=== PATIENT | male | born 1945 | race Caucasian/White ===

== ENCOUNTER 2020-05-18 14:06 | Emergency (ER) | payer MEDICARE, OTHER, SELFPAY ==
[2020-05-18 14:18] VITALS: BP 166/64; PULSE 59; RESP 16; TEMP 36.8; O2SAT 99
--- NOTE | 2020-05-18 14:42 | ED.EYEPROB ---
HPI - Eye Problem General Chief complaint: Eye Problems Stated complaint: eyes itching/burning Time Seen by Provider: 05/18/20 14:42 Source: patient Mode of arrival: ambulatory Limitations: no limitations History of Present Illness HPI Narrative: Scar Cid is a 74 yo male with a PMH dialysis, CKD, HTN, CHF, diabetes, chronic anticoagulation, hypothyroid, PTSD, high cholesterol, HSV, was here for bilateral eye itching that started on right 3 to 4 days ago with left starting today. Patient has a long medical history most acute being his last June where he had viral pneumonia and ended up developing kidney failure resulting in starting dialysis, his ejection fraction for his heart became poor, down to 15% with the use of Entresto for congestive heart failure and adjustment about his medication his current ejection fraction is 39%. Because of the low ejection fraction an ICD was implanted in his chest on the upper left; he is on chronic anticoagulation due to the stents that he received in 2005 and again in 2019. Related Data Home Medications Medication Instructions Recorded Confirmed allopurinol 100 mg PO DAILY 05/18/20 05/18/20 amlodipine 5 mg PO DAILY 05/18/20 05/18/20 carvedilol 12.5 mg PO BID 05/18/20 05/18/20 clopidogrel [Plavix] 75 mg PO DAILY 05/18/20 05/18/20 folic acid 1 mg PO DAILY 05/18/20 05/18/20 insulin aspart U-100 [Novolog 10 unit SUBCUT TID 05/18/20 05/18/20 U-100 Insulin aspart] insulin glargine [Lantus U-100 14 unit SUBCUT DAILY 05/18/20 05/18/20 Insulin] levothyroxine 100 mcg PO DAILY 05/18/20 05/18/20 rosuvastatin 20 mg PO DAILY 05/18/20 05/18/20 valacyclovir 1,000 mg PO TID 05/18/20 05/18/20 Allergies Allergy/AdvReac Type Severity Reaction Status Date / Time fentanyl Allergy Nausea and Verified 05/18/20 14:32 Vomiting Review of Systems Review of Systems: Narrative: CONSTITUTIONAL: Denies fever, chills, sweats. EYES: Denies visual changes, has bilateral redness, discharge on right. Complains of itching bilaterally ENT: Denies rhinorrhea, congestion, sore throat, otalgia. CARDIOVASCULAR: Denies chest pain, palpitations, edema. RESPIRATORY: Denies dyspnea, wheezing, cough GASTROINTESTINAL: Denies abdominal pain, nausea, vomiting, diarrhea. GENITOURINARY: Denies dysuria, hematuria, abnormal discharge SKIN: Denies rash or itching. NEUROLOGIC: Denies numbness, or focal weakness. PSYCHIATRIC: Denies anxiety or depression. [facility] Past Medical History Medical History Chronic anticoagulation CKD (chronic kidney disease) Diabetes Dialysis (juvenile) of retina (with detachment) High cholesterol HTN (hypertension) Hypothyroid Social History Social History (Updated 05/18/20 @ 15:27 by Katharina Umana CNP) Smoking status: Former smoker Alcohol intake: former Comments At time of signature, I agree with nursing past medical, surgical, social and family history. There is no relevant family history pertinent to the presenting complaint. Exam Narrative: Exam Narrative: GENERAL: This is a well-nourished, well-developed patient, in mild distress. HEAD: normocephalic, atraumatic. EYES: . Sclera injected bilaterally with matting on right eyelid. vision is grossly intact. EARS: External ears normal, Hearing grossly intact. NOSE: External nose normal without nasal discharge, nares without redness, no rhinorrhea. THROAT: Mucous membranes moist, NECK: Neck supple, CARDIOVASCULAR: Regular rate and rhythm without murmurs, gallops, or rubs. RESPIRATORY: Clear to auscultation. Breath sounds equal bilaterally. No wheezes, rales, or rhonchi. GASTROINTESTINAL: Abdomen soft, non-tender, SKIN: warm, intact with no suspicious lesions or rash, good texture and turgor. Bruising on arms and back of hands NEURO: awake, alert, and oriented to person, place and time. There were no obvious focal neurologic abnormalities. Steady gait EXTREMITIE
== END 2020-05-18 15:22 | disposition home or self-care (01) ==
PROVIDERS: Emergency Provider Nurse Practitioner; PCP Internal Medicine
DX: H57.89 Other specified disorders of eye and adnexa (principal); T78.40XA Allergy, unspecified, initial encounter; K12.0 Recurrent oral aphthae; H10.31 Unspecified acute conjunctivitis, right eye; Z87.891 Personal history of nicotine dependence; I13.0 Hypertensive heart and chronic kidney disease with heart failure and stage 1 through stage 4 chronic kidney disease, or unspecified chronic kidney disease; E11.22 Type 2 diabetes mellitus with diabetic chronic kidney disease; N18.3 Chronic kidney disease, stage 3 (moderate); I50.9 Heart failure, unspecified; Z79.4 Long term (current) use of insulin; E78.00 Pure hypercholesterolemia, unspecified; E03.9 Hypothyroidism, unspecified; Z99.2 Dependence on renal dialysis; Z79.01 Long term (current) use of anticoagulants; Z95.810 Presence of automatic (implantable) cardiac defibrillator
CPT/HCPCS: 99203; G0463

== ENCOUNTER 2020-06-25 16:13 | Emergency (ER) | payer MEDICARE, OTHER, SELFPAY ==
--- NOTE | 2020-06-25 16:26 | ED.EYEPROB ---
HPI - Eye Problem General Stated complaint: eyes Time Seen by Provider: 06/25/20 16:26 Source: patient and RN notes reviewed History of Present Illness HPI Narrative: Patient is a 74-year-old male who presents the urgent care with complaints of itchy dry eyes. Patient states that 1 week ago he had steroid shots in the eyes for bleeding in the eyes. Patient states he does not have a follow-up without specific eye doctor but did make an appointment at [facility] on Tuesday. Patient states that irritation and matting started yesterday and he has been using dry eyedrops as well as steroid drops. 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 Patient states he stopped them yesterday when the irritation started. Denies of any changes in vision. Denies of any known trauma or injury to the eyes. No other acute complaints. No acute distress noted. Patient aware of the plan of care. Some parts of this dictation were generated by voice recognition software and may contain typographical and/or grammatical inaccuracies. Related Data Home Medications Medication Instructions Recorded Confirmed allopurinol 100 mg PO DAILY 05/18/20 06/25/20 carvedilol 12.5 mg PO BID 05/18/20 06/25/20 clopidogrel [Plavix] 75 mg PO DAILY 05/18/20 06/25/20 folic acid 1 mg PO DAILY 05/18/20 06/25/20 insulin aspart U-100 [Novolog 10 unit SUBCUT TID 05/18/20 06/25/20 U-100 Insulin aspart] insulin glargine [Lantus U-100 14 unit SUBCUT DAILY 05/18/20 06/25/20 Insulin] levothyroxine 100 mcg PO DAILY 05/18/20 06/25/20 rosuvastatin 20 mg PO DAILY 05/18/20 06/25/20 valacyclovir 1,000 mg PO TID 05/18/20 06/25/20 amlodipine 2.5 mg PO DAILY 06/25/20 06/25/20 ezetimibe 10 mg PO DAILY 06/25/20 06/25/20 spironolactone 25 mg PO DAILY 06/25/20 06/25/20 Allergies Allergy/AdvReac Type Severity Reaction Status Date / Time fentanyl Allergy Nausea and Verified 06/25/20 16:37 Vomiting Review of Systems Review of Systems: Narrative: CONSTITUTIONAL: Denies fever, chills, or sweats. EYES: Reports of itchiness, scratchiness and matting to bilateral eyes ENT: Denies rhinorrhea, congestion, sore throat, or otalgia. CARDIOVASCULAR: Denies chest pain, palpitations, or edema. RESPIRATORY: Denies cough or dyspnea. GASTROINTESTINAL: Denies abdominal pain, nausea, vomiting, or diarrhea. GENITOURINARY: Denies dysuria or hematuria. SKIN: Denies rash or itching. MUSCULOSKELETAL: Denies back pain, joint pain, or myalgia. NEUROLOGIC: Denies headache, numbness, or weakness. All other systems reviewed are negative, except as documented in HPI. [facility] Social History Social History (Updated 05/18/20 @ 15:27 by Katharina Umana CNP) Smoking status: Former smoker Alcohol intake: former Comments At the time of my signature, I reviewed and agree with the nursing past medical, surgical, social, and family history. There is no relevant family history pertinent to the patient complaint. Exam Narrative: Exam Narrative: GENERAL: This is a well-nourished, well-developed patient, in no apparent distress. HEAD: normocephalic, atraumatic. EYES: PERRL. Sclera clear/white. Vision is grossly intact. No obvious injection noted to bilateral conjunctiva. Notable dry conjunctiva-without any matting. No obvious injury or foreign body EARS: External ears normal NOSE: External nose normal with no obvious nasal discharge, nares without redness, no rhinorrhea. THROAT: Mucous membranes moist NECK: Neck supple SKIN: warm, intact with no suspicious lesions or rash, good texture and turgor. NEURO: awake, alert, and oriented to person, place and time. There were no obvious focal neurologic abnormalities. EXTREMITIES: No clubbing, cyanosis, or edema. Course Vital Signs Vital signs: Vital Signs Temperature 98.5 F 06/25/20 16:30 Pulse Rate 60 06/25/20 16:30 Respiratory Rate 20 06/25/20 16:30 Blood Pressure 153/53 H 06/25/20
[2020-06-25 16:30] VITALS: BP 153/53; PULSE 60; RESP 20; TEMP 36.9; O2SAT 98
== END 2020-06-25 17:05 | disposition home or self-care (01) ==
PROVIDERS: Emergency Provider Nurse Practitioner Family; PCP Internal Medicine
DX: H57.89 Other specified disorders of eye and adnexa (principal); Z87.891 Personal history of nicotine dependence; E78.00 Pure hypercholesterolemia, unspecified; I13.0 Hypertensive heart and chronic kidney disease with heart failure and stage 1 through stage 4 chronic kidney disease, or unspecified chronic kidney disease; E11.22 Type 2 diabetes mellitus with diabetic chronic kidney disease; N18.9 Chronic kidney disease, unspecified; I50.9 Heart failure, unspecified; E03.9 Hypothyroidism, unspecified; Z95.810 Presence of automatic (implantable) cardiac defibrillator
CPT/HCPCS: 99213; G0463

== ENCOUNTER 2022-06-11 13:35 | Emergency (ER) | payer MEDICARE, OTHER, SELFPAY ==
[2022-06-11 13:42] VITALS: BP 130/48; PULSE 69; RESP 18; TEMP 36.6; O2SAT 97
[2022-06-11 14:01] VITALS: BP 130/52; PULSE 69
--- NOTE | 2022-06-11 14:04 | ED.BACK ---
HPI - Back Pain/Injury General Chief Complaint: Back Pain/Injury Stated Complaint: Back Pain Time Seen by Provider: 06/11/22 13:50 Source: patient Mode of arrival: ambulatory Limitations: no limitations History of Present Illness HPI Narrative: Mr. Cid is a 76-year-old male patient presenting to the clinic today with complaints of severe low back pain x2 days. He became very diaphoretic and pale and felt as though he was going to passed out when he got into our triage room. He does have a history of renal failure and is on dialysis. He just was dialyzed yesterday. States he fell in the bathtub approximately 1 month ago however he does not feel like this is causing his back pain today. Recommend transfer to ED for further follow-up/evaluation since his pain is so intense and patient agreed. Related Data Home Medications Medication Instructions Recorded Confirmed allopurinol 100 mg tablet 100 mg PO DAILY 05/18/20 06/11/22 carvedilol 12.5 mg tablet 12.5 mg PO BID 05/18/20 06/11/22 clopidogrel 75 mg tablet (Plavix) 75 mg PO DAILY 05/18/20 06/11/22 folic acid 1 mg tablet 1 mg PO DAILY 05/18/20 06/11/22 insulin aspart U-100 100 unit/mL 10 unit subcut TID 05/18/20 06/11/22 subcutaneous solution (Novolog U-100 Insulin aspart) insulin glargine 100 unit/mL 14 unit subcut DAILY 05/18/20 06/11/22 subcutaneous solution (Lantus U-100 Insulin) levothyroxine 100 mcg capsule 100 mcg PO DAILY 05/18/20 06/11/22 valacyclovir 500 mg tablet 1,000 mg PO TID 05/18/20 06/11/22 amlodipine 2.5 mg tablet 2.5 mg PO DAILY 06/25/20 06/11/22 carboxymethylcellulose sodium 0.5 See Rx Instructions .Route .COMPLEX 06/25/20 06/11/22 % eye drops (Refresh Tears) ezetimibe 10 mg tablet 10 mg PO DAILY 06/25/20 06/11/22 famotidine 40 mg tablet 40 mg PO DAILY 06/25/20 06/11/22 fenofibrate nanocrystallized 48 mg 48 mg PO DAILY 06/25/20 06/11/22 tablet (Tricor) methotrexate sodium 2.5 mg tablet 2.5 mg PO WEEKLY 06/25/20 06/11/22 prednisone 2.5 mg tablet 2.5 mg PO BID PRN pain 06/25/20 06/11/22 rosuvastatin 10 mg tablet 10 mg PO DAILY 06/25/20 06/11/22 spironolactone 25 mg tablet 25 mg PO DAILY 06/25/20 06/11/22 Allergies Allergy/AdvReac Type Severity Reaction Status Date / Time fentanyl Allergy Nausea and Verified 06/11/22 13:52 Vomiting [facility] Past Medical History Medical History (Updated 06/11/22 @ 14:13 by Ochoa Dunlap, DIRECTOR BUSINESS DEVELOPMENT) Chronic anticoagulation CKD (chronic kidney disease) Diabetes Dialysis (juvenile) of retina (with detachment) High cholesterol HTN (hypertension) Hypothyroid Social History Social History Smoking status: Former smoker Alcohol intake: former Comments At the time of my signature, I reviewed and agree with the nursing past medical, surgical, social, and family history. There is no relevant family history pertinent to the patient complaint. Exam Narrative: General: Well-developed, obese, in no apparent distress Head: Normocephalic, atraumatic. Cardio: Regular rate and rhythm, s1 and s2 normal, no murmur appreciated. Resp: Clear to auscultation bilaterally, no rhonchi, rales, wheezing or rubs. Musculoskeletal: No deformity, tender to palpation over the lumbar spine and paraspinous musculature, very limited range of motion due to pain, muscle strength strong and equal, peripheral pulse strong, no edema, no cyanosis, cautious and slow moving gait due to pain Skin: Is pale and diaphoretic in triage due to pain Course Course Emergency Course: Portions of this record may have been created with voice recognition software. Level of Care: Express Care Visit Vital Signs Vital signs: Vital Signs Temperature 36.6 C 06/11/22 13:42 Pulse Rate 69 06/11/22 13:42 Respiratory Rate 18 06/11/22 13:42 Blood Pressure 130/48 L 06/11/22 13:42 Pulse Oximetry 97 06/11/22 13:42 Oxygen Delivery Room Air 06/11/22 13:42 Tem
== END 2022-06-11 14:02 | disposition short-term general hospital (02) ==
LOC: EXPBETH 13:38
PROVIDERS: Emergency Provider Nurse Practitioner Family; PCP Internal Medicine
DX: M54.50 Low back pain, unspecified (principal); Z87.891 Personal history of nicotine dependence; I12.0 Hypertensive chronic kidney disease with stage 5 chronic kidney disease or end stage renal disease; E11.22 Type 2 diabetes mellitus with diabetic chronic kidney disease; N18.6 End stage renal disease; Z99.2 Dependence on renal dialysis; Z79.4 Long term (current) use of insulin; E78.00 Pure hypercholesterolemia, unspecified; E03.9 Hypothyroidism, unspecified; Z79.01 Long term (current) use of anticoagulants
CPT/HCPCS: 99212; G0463

== ENCOUNTER → 2023-02-10 07:47 | Outpatient (CLI) | payer MEDICARE, OTHER, SELFPAY ==
--- NOTE | ~2023-02-10 | CT_ITS ---
Noncontrast CT scan of the lumbar spine CLINICAL HISTORY: Compression fracture TECHNIQUE: Axial noncontrast imaging of the lumbar spine was performed. Sagittal and coronal reformat rhonda images were constructed. Dose reduction technique was used on this scan by utilizing automated ex posure control and iterative reconstruction technique. The dose-length product (DLP) was 1001.38 mGy- cm. FINDINGS: There are chronic compression deformities of T12 and L1 with vertebroplasty cement present. There is moderate compression fracture deformity predominantly involving the central portion of the L3 vertebral body. No subluxation evident. At L1-L2, there is no disc bulge or herniation. There is minimal facet arthropathy. No spinal canal s tenosis. There is mild to moderate bilateral neural foraminal narrowing. At L2-L3, there is minimal disc bulge and mild facet arthropathy. No spinal canal stenosis. There is mild left neural foraminal narrowing. At L3-L4, there is disc bulge and moderate facet arthropathy. No central canal stenosis. There is mil d bilateral neural foraminal narrowing. At L4-L5, there is disc bulge and advanced facet arthropathy, resulting in moderate to severe thecal sac compression/stenosis. There is moderate bilateral neural foraminal narrowing, right worse than le ft. At L5-S1, there is disc bulge and advanced facet arthropathy. No berenice central canal stenosis. There is moderate to severe bilateral neural foraminal narrowing. Paravertebral soft tissues are unremarkable. Impression: Moderate compression fracture involving the central portion of the L3 vertebral body. Chronic compression fractures of T12 and L1, with vertebroplasty cement. Advanced degenerative spondylosis at L4-L5. Mild to moderate degenerative spondylosis at the remainin g lumbar spine. Reviewed, dictated and finalized at [facility]. Impression: Moderate compression fracture involving the central portion of the L3 vertebral body. Chronic compression fractures of T12 and L1, with vertebroplasty cement. Advanced degenerative spondylosis at L4-L5. Mild to moderate degenerative spond ylosis at the remaining lumbar spine.
== END ==
PROVIDERS: PCP Internal Medicine; Visit Provider Anesthesiology Pain Medicine
DX: M48.56XA Collapsed vertebra, not elsewhere classified, lumbar region, initial encounter for fracture (principal); M43.06 Spondylolysis, lumbar region
CPT/HCPCS: 72131

== ENCOUNTER → 2023-04-20 11:09 | Outpatient (CLI) | payer MEDICARE, OTHER, SELFPAY ==
--- NOTE | ~2023-04-20 | CT_ITS ---
EXAMINATION: CT lumbar spine wo con DATE: 04/20/2023 11:35 INDICATION: Lumbago. TECHNIQUE: Computed tomography (CT) of the lumbar spine was performed without intravenous contrast. A utomated exposure control and iterative reconstruction technique were employed. The dose-length produ ct was 1052.00 mGy-cm. COMPARISON: CT lumbar spine 02/10/2023 FINDINGS: There is an old healed fracture left 12th rib. There is 7 degrees levocurvature of thoracol umbar spine. Partially visualized is a subacute compression fracture of T11. There are chronic burst fractures of T12 and L1 with changes of vertebroplasty. There is a burst fracture of L3 with 2/5 loss of height and retropulsion of bone 1 mm into central spinal canal. There is a burst fracture of L4 w ith less than 1/5 loss of height and retropulsion of bone 2 mm into central spinal canal. Interverteb ral disc heights are normal. The following disc levels are specifically discussed: L1-L2: The disc does not extend beyond the endplate margin. There is severe right and moderate left f acet joint osteoarthritis. There is no neural foraminal stenosis. There is no central canal stenosis. L2-L3: The disc is bulging. There is moderate bilateral facet joint osteoarthritis. There is mild vanessa ateral neural foraminal stenosis. There is mild central canal stenosis. L3-L4: The disc is bulging. There is severe bilateral facet joint osteoarthritis. There is mild bilat eral neural foraminal stenosis. There is mild central canal stenosis. L4-L5: The disc is bulging. There is severe bilateral facet joint osteoarthritis. There is moderate r ight and mild left neural foraminal stenosis. There is mild central canal stenosis. L5-S1: The disc is bulging. There is severe bilateral facet joint osteoarthritis. There is mild bilat eral neural foraminal stenosis. There is mild central canal stenosis. IMPRESSION: 1. Acute L4 burst fracture. 2. Subacute L3 burst fracture, stable from 02/10/2023. Partially visualized T11 compression fracture, likely stable. 3. Mild lumbar spondylosis. Reviewed, dictated and finalized at location [facility].
== END ==
PROVIDERS: PCP Internal Medicine; Visit Provider Nurse Practitioner Family
DX: S32.041A Stable burst fracture of fourth lumbar vertebra, initial encounter for closed fracture (principal); S32.031A Stable burst fracture of third lumbar vertebra, initial encounter for closed fracture; M47.816 Spondylosis without myelopathy or radiculopathy, lumbar region; S22.080A Wedge compression fracture of T11-T12 vertebra, initial encounter for closed fracture; X58.XXXA Exposure to other specified factors, initial encounter
CPT/HCPCS: 72131

== ENCOUNTER 2023-04-29 16:12 | Emergency (ER) | payer MEDICARE, OTHER, SELFPAY ==
--- NOTE | ~2023-04-29 | XR_ITS ---
EXAMINATION: XR chest 2V DATE: 04/29/2023 17:03 INDICATION: Productive cough. TECHNIQUE: Frontal and lateral views of the chest were obtained on 3 radiographs. COMPARISON: CT 04/20/2023 FINDINGS: There is mild atelectasis in left lower lung zone. No pleural effusion or pneumothorax. The heart size is normal. There is a left chest pacer with leads in right atrium, right ventricle, and c oronary sinus. There are old healed right rib fractures. There are changes of vertebroplasty at 2 lev els. Again seen is height loss of multiple vertebral bodies. IMPRESSION: 1. Mild atelectasis in left lower lung zone. Reviewed, dictated and finalized at location [facility].
[2023-04-29 16:22] VITALS: BP 129/85; PULSE 74; RESP 18; TEMP 36.3; O2SAT 98
--- NOTE | 2023-04-29 16:30 | ED.URI ---
HPI - URI/Sore Throat General Chief Complaint: Upper Respiratory Infection Stated Complaint: Coughing and Vomitting Source: patient, family and RN notes reviewed History of Present Illness HPI Narrative: 77 yo M presents to urgent care with at side. states pt has been coughing x 3 weeks. Pt states he will cough so hard, he will vomit. Pt also states he will vomit sometimes without coughing, about 1x/day, but not today. Reports diarrhea last weekend but nothing since. States his cough is worse when he lies down. Denies any chest pain, SOB, abdominal pain. Pt has been taking Tessalon Perles at home. Pt also has zofran and meclizine at home to help with vomiting but they do not work. Related Data Home Medications Medication Instructions Recorded Confirmed allopurinol 100 mg tablet 100 mg PO DAILY 05/18/20 04/29/23 carvedilol 12.5 mg tablet 12.5 mg PO BID 05/18/20 04/29/23 clopidogrel 75 mg tablet (Plavix) 75 mg PO DAILY 05/18/20 04/29/23 folic acid 1 mg tablet 1 mg PO DAILY 05/18/20 04/29/23 insulin aspart U-100 100 unit/mL 10 unit subcut TID 05/18/20 04/29/23 subcutaneous solution (Novolog U-100 Insulin aspart) insulin glargine 100 unit/mL 14 unit subcut DAILY 05/18/20 04/29/23 subcutaneous solution (Lantus U-100 Insulin) levothyroxine 100 mcg capsule 100 mcg PO DAILY 05/18/20 04/29/23 valacyclovir 500 mg tablet 1,000 mg PO TID 05/18/20 04/29/23 amlodipine 2.5 mg tablet 2.5 mg PO DAILY 06/25/20 04/29/23 carboxymethylcellulose sodium 0.5 See Rx Instructions .Route .COMPLEX 06/25/20 04/29/23 % eye drops (Refresh Tears) ezetimibe 10 mg tablet 10 mg PO DAILY 06/25/20 04/29/23 famotidine 40 mg tablet 40 mg PO DAILY 06/25/20 04/29/23 fenofibrate nanocrystallized 48 mg 48 mg PO DAILY 06/25/20 04/29/23 tablet (Tricor) methotrexate sodium 2.5 mg tablet 2.5 mg PO WEEKLY 06/25/20 04/29/23 prednisone 2.5 mg tablet 2.5 mg PO BID PRN pain 06/25/20 04/29/23 rosuvastatin 10 mg tablet 10 mg PO DAILY 06/25/20 04/29/23 spironolactone 25 mg tablet 25 mg PO DAILY 06/25/20 04/29/23 Allergies Allergy/AdvReac Type Severity Reaction Status Date / Time fentanyl Allergy Nausea and Verified 04/29/23 16:34 Vomiting Review of Systems Review of Systems: Pertinent positives and pertinent negatives per HPI. [facility] Past Medical History Medical History (Updated 04/29/23 @ 17:42 by Summer Garcia, BOND CLERK) Chronic anticoagulation CKD (chronic kidney disease) Diabetes Dialysis (juvenile) of retina (with detachment) High cholesterol HTN (hypertension) Hypothyroid Social History Social History Smoking status: Former smoker Alcohol intake: former Comments At the time of my signature, I reviewed and agree with the nursing past medical, surgical, social, and family history. There is no relevant family history pertinent to the patient complaint. Exam Narrative: GENERAL: This is a well-nourished, well-developed patient, in no apparent distress. HEAD: normocephalic, atraumatic. EYES: Sclera clear/white. Vision is grossly intact. EARS: External ears normal, auditory canals clear and without drainage. Hearing grossly intact. NOSE: External nose normal with no obvious nasal discharge, nares without redness, no rhinorrhea. THROAT: Mucous membranes moist, posterior pharynx clear. NECK: Neck supple, non-tender without lymphadenopathy, masses or thyromegaly. CARDIOVASCULAR: Regular rate RESPIRATORY: Clear to auscultation. Breath sounds equal bilaterally. No wheezes, rales, or rhonchi. GASTROINTESTINAL: Abdomen soft, non-tender, nondistended. Bowel sounds are active. No hepato-splenomegaly, or palpable masses. No guarding. SKIN: warm, intact with no suspicious lesions or rash, good texture and turgor. NEURO: awake, alert, and oriented to person, place and time. There were no obvious focal neurologic abnormalities. Course Course Level of Care: Express Ca
== END 2023-04-29 17:52 | disposition home or self-care (01) ==
PROVIDERS: Emergency Provider Nurse Practitioner Family; PCP Internal Medicine
DX: J40 Bronchitis, not specified as acute or chronic (principal); R11.10 Vomiting, unspecified; Z87.891 Personal history of nicotine dependence; I12.0 Hypertensive chronic kidney disease with stage 5 chronic kidney disease or end stage renal disease; E11.22 Type 2 diabetes mellitus with diabetic chronic kidney disease; N18.6 End stage renal disease; Z99.2 Dependence on renal dialysis; Z79.4 Long term (current) use of insulin; Z79.01 Long term (current) use of anticoagulants; E78.00 Pure hypercholesterolemia, unspecified; E03.9 Hypothyroidism, unspecified
CPT/HCPCS: 71046; 99213; G0463

== ENCOUNTER 2023-07-09 15:52 | Emergency (ER) | payer MEDICARE, OTHER, SELFPAY ==
--- NOTE | ~2023-07-09 | XR_ITS ---
EXAM: XR hand LT min 3V DATE: 07/09/2023 16:47 HISTORY: KNI. CHRONIC SWELLING. . COMPARISON: None available. FINDINGS: Decreased mineralization. No fracture or dislocation. No lytic or blastic lesion. Moderate polyarticular osteoarthritis. No erosion or periosteal change. Diffuse vascular calcifications. IMPRESSION: No acute osseous finding in the left hand. Reviewed, dictated and finalized at location [facility].
[2023-07-09 16:02] VITALS: BP 121/58; PULSE 80; RESP 20; TEMP 36.5; O2SAT 97
--- NOTE | 2023-07-09 16:07 | ED.EXTPRO ---
HPI - Extremity Problem General Chief complaint: Extremity Problem,Nontraumatic Stated complaint: gout Time Seen by Provider: 07/09/23 16:07 Source: patient, RN notes reviewed and old records reviewed Mode of arrival: ambulatory Limitations: no limitations History of Present Illness HPI Narrative: 77 year old male accompanied by presents to express care with complaints of 2 week duration of left forearm and hand swelling. Patient is dialysis patient and has fistula to his left upper arm and patient did have dialysis today. and worked fine according to . Patient states his main complaint today is pain in his left hand and wrist area.Patient states the pain is worse when he makes a fist, reports no numbness or tingling to hand, reports no injury or fall. Patient reports that he thinks it may be gout has had gout in the past and he takes Allopurinol daily. Patient has long history of co morbidities. MD Complaint: extremity pain and extremity swelling (left forearm and hand) Onset (ago): week(s) (2 weeks stated increased swelling left distal forearm and hand, increased pain to [place] hand and wrist today. ) Location: left and upper extremity (distal forearm and left hand) Severity scale (1-10): 6 Exacerbating factors: other (movement and making a fist) Related Data Home Medications Medication Instructions Recorded Confirmed allopurinol 100 mg tablet 100 mg PO DAILY 05/18/20 04/29/23 carvedilol 12.5 mg tablet 12.5 mg PO BID 05/18/20 04/29/23 clopidogrel 75 mg tablet (Plavix) 75 mg PO DAILY 05/18/20 04/29/23 folic acid 1 mg tablet 1 mg PO DAILY 05/18/20 04/29/23 insulin aspart U-100 100 unit/mL 10 unit subcut TID 05/18/20 04/29/23 subcutaneous solution (Novolog U-100 Insulin aspart) insulin glargine 100 unit/mL 14 unit subcut DAILY 05/18/20 04/29/23 subcutaneous solution (Lantus U-100 Insulin) levothyroxine 100 mcg capsule 100 mcg PO DAILY 05/18/20 04/29/23 valacyclovir 500 mg tablet 1,000 mg PO TID 05/18/20 04/29/23 amlodipine 2.5 mg tablet 2.5 mg PO DAILY 06/25/20 04/29/23 carboxymethylcellulose sodium 0.5 See Rx Instructions .Route .COMPLEX 06/25/20 04/29/23 % eye drops (Refresh Tears) ezetimibe 10 mg tablet 10 mg PO DAILY 06/25/20 04/29/23 famotidine 40 mg tablet 40 mg PO DAILY 06/25/20 04/29/23 fenofibrate nanocrystallized 48 mg 48 mg PO DAILY 06/25/20 04/29/23 tablet (Tricor) methotrexate sodium 2.5 mg tablet 2.5 mg PO WEEKLY 06/25/20 04/29/23 prednisone 2.5 mg tablet 2.5 mg PO BID PRN pain 06/25/20 04/29/23 rosuvastatin 10 mg tablet 10 mg PO DAILY 06/25/20 04/29/23 spironolactone 25 mg tablet 25 mg PO DAILY 06/25/20 04/29/23 Allergies Allergy/AdvReac Type Severity Reaction Status Date / Time fentanyl Allergy Nausea and Verified 07/09/23 16:21 Vomiting Review of Systems Review of Systems: CONSTITUTIONAL: Denies fever, chills, or sweats. EYES: Denies visual changes, redness, or discharge. ENT: Denies rhinorrhea, congestion, sore throat, or otalgia. CARDIOVASCULAR: Denies chest pain, palpitations, or edema. RESPIRATORY: Denies cough or dyspnea. GASTROINTESTINAL: Denies abdominal pain, nausea, vomiting, or diarrhea. GENITOURINARY: Denies dysuria or hematuria. SKIN: Denies rash or itching. MUSCULOSKELETAL: Denies back pain, positive for pain to left hand and wrist with swelling, or myalgia. NEUROLOGIC: Denies headache, numbness, reports weakness and fatigue is dialysis patient has many comorbidities. PSYCHIATRIC: Denies anxiety or depression. All systems reviewed & are unremarkable except as noted in HPI and below PMFSH Past Medical History Medical History (Updated 07/11/23 @ 16:22 by Kaylyn Orosco NP) Anxiety CHF (congestive heart failure), NYHA class III Chronic anticoagulation CKD (chronic kidney disease) Diabetes Dialysis patient 3 times per week, fistula left arm High cholesterol HTN (hypertension) Hypothyroid Presence of arteriovenous shunt for hemodialysis left arm PTSD (p
== END 2023-07-09 17:14 | disposition home or self-care (01) ==
PROVIDERS: Emergency Provider Registered Nurse; PCP Internal Medicine
DX: M19.042 Primary osteoarthritis, left hand (principal); Z87.891 Personal history of nicotine dependence; I13.2 Hypertensive heart and chronic kidney disease with heart failure and with stage 5 chronic kidney disease, or end stage renal disease; E11.22 Type 2 diabetes mellitus with diabetic chronic kidney disease; N18.6 End stage renal disease; I50.9 Heart failure, unspecified; Z99.2 Dependence on renal dialysis; Z79.4 Long term (current) use of insulin; E78.00 Pure hypercholesterolemia, unspecified; E03.9 Hypothyroidism, unspecified; Z95.810 Presence of automatic (implantable) cardiac defibrillator; Z96.652 Presence of left artificial knee joint; Z79.01 Long term (current) use of anticoagulants
CPT/HCPCS: 73130; 99213; G0463

== ENCOUNTER 2023-09-01 12:16 | Emergency (ER) | payer MEDICARE, OTHER, SELFPAY ==
[2023-09-01 12:17] VITALS: BP 149/80; PULSE 75; RESP 28; TEMP 37.1; O2SAT 100
--- NOTE | 2023-09-01 12:18 | ED.GENADULT ---
HPI - General Adult General Chief complaint: Shortness of Breath/Dyspnea Stated complaint: Shortness of Breath/Cough Time Seen by Provider: 09/01/23 12:30 Source: patient, RN notes reviewed and old records reviewed Mode of arrival: ambulatory Limitations: no limitations History of Present Illness HPI narrative: 78-year-old male presents to the [facility] with complaints of cough, shortness of breath that has been going on for several days. Worse last night. Patient reports that he was admitted to [facility] on Tuesday and had 3 L taken off at dialysis at that time. Patient was admitted for a couple of days to [facility]. Diagnosed with bronchitis, started on azithromycin. went to dialysis earlier today with difficulty breathing, 1.6 L removed today. Patient comes in today patient states ?I thought this was an ER. ? is wanting an x-ray. Patient is only able to talk in 1-2 word sentences at a time, labored breathing. Unable to lay back to get x-ray, had to raise up head of stretcher. Patient has a history of diabetes, pacemaker, dialysis. Has a history of congestive heart failure Onset (ago): day(s) Related Data Home Medications Medication Instructions Recorded Confirmed allopurinol 100 mg tablet 100 mg PO DAILY 05/18/20 04/29/23 carvedilol 12.5 mg tablet 12.5 mg PO BID 05/18/20 04/29/23 clopidogrel 75 mg tablet (Plavix) 75 mg PO DAILY 05/18/20 04/29/23 folic acid 1 mg tablet 1 mg PO DAILY 05/18/20 04/29/23 insulin aspart U-100 100 unit/mL 10 unit subcut TID 05/18/20 04/29/23 subcutaneous solution (Novolog U-100 Insulin aspart) insulin glargine 100 unit/mL 14 unit subcut DAILY 05/18/20 04/29/23 subcutaneous solution (Lantus U-100 Insulin) levothyroxine 100 mcg capsule 100 mcg PO DAILY 05/18/20 04/29/23 amlodipine 2.5 mg tablet 2.5 mg PO DAILY 06/25/20 04/29/23 carboxymethylcellulose sodium 0.5 See Rx Instructions .Route .COMPLEX 06/25/20 04/29/23 % eye drops (Refresh Tears) ezetimibe 10 mg tablet 10 mg PO DAILY 06/25/20 04/29/23 famotidine 40 mg tablet 40 mg PO DAILY 06/25/20 04/29/23 fenofibrate nanocrystallized 48 mg 48 mg PO DAILY 06/25/20 04/29/23 tablet (Tricor) rosuvastatin 10 mg tablet 10 mg PO DAILY 06/25/20 04/29/23 spironolactone 25 mg tablet 25 mg PO DAILY 06/25/20 04/29/23 Allergies Allergy/AdvReac Type Severity Reaction Status Date / Time fentanyl Allergy Nausea and Verified 09/01/23 12:37 Vomiting Review of Systems Review of Systems: All systems reviewed & are unremarkable except as noted in HPI and below Constitutional: Constitutional: Reports no additional constitutional complaints Eyes: Eyes: Reports no additional eye complaints ENT: Reports system reviewed and no additional complaints, except as documented Cardiovascular: Cardiovascular: Reports as per HPI, Denies chest pain, Reports chest pain with activity, Reports dyspnea, Reports dyspnea on exertion, Reports orthopnea and Reports paroxysmal nocturnal dyspnea (Last night) Respiratory: Respiratory: Reports as per HPI, Reports chest congestion, Reports cough, Reports pain with cough, Reports dyspnea and Reports dyspnea on exertion Gastrointestinal: Gastrointestinal: Reports no additional gastrointestinal complaints, Denies abdominal pain, Denies nausea and Denies vomiting Musculoskeletal: Musculoskeletal: Reports no additional musculoskeletal complaints Integumentary/Breasts: Skin/Breast: Reports system reviewed and no additional complaints, except as docu Neurologic: Reports system reviewed and no additional complaints, except as documented Psychiatric: Psychiatric: Reports no additional psychiatric complaints Allergic/Immunologic: Allergic/Immunologic: Reports no additional allergic/immunologic complaints PMFSH Past Medical History Medical History Anxiety CHF (congestive heart failure), NYHA class III Chronic anticoagulation CKD (chronic kidney disease)
--- NOTE | 2023-09-01 12:38 | ECG_ITS ---
Measurements Intervals [place] Rate: 75 P: 8 GA: 156 QRS: -83 QRSD: 145 T: 87 QT: 464 QTc: 521 Interpretive Statements ELECTRONIC VENTRICULAR PACEMAKER ATYPICAL ECG NO PREVIOUS ECG AVAILABLE FOR COMPARISON Electronically Signed On 09-01-2023 14:08:50 [employer] by Anejl Rangel M.D.
[2023-09-01 12:45] VITALS: PULSE 74; RESP 28; O2SAT 100
--- NOTE | 2023-09-01 16:15 | PC.NURSE ---
chart was faxed to [facility].
== END 2023-09-01 12:45 | disposition short-term general hospital (02) ==
PROVIDERS: Emergency Provider Nurse Practitioner; PCP Internal Medicine
DX: R06.02 Shortness of breath (principal); R07.9 Chest pain, unspecified; I13.0 Hypertensive heart and chronic kidney disease with heart failure and stage 1 through stage 4 chronic kidney disease, or unspecified chronic kidney disease; I50.9 Heart failure, unspecified; N18.9 Chronic kidney disease, unspecified; E11.22 Type 2 diabetes mellitus with diabetic chronic kidney disease; E03.9 Hypothyroidism, unspecified; Z87.891 Personal history of nicotine dependence
CPT/HCPCS: 93005; 99215; G0463